=== PATIENT | female | born 1950 | race Caucasian/White ===

== ENCOUNTER 2018-05-12 11:49 | Outpatient (CLI) | payer OTHER ==
[2018-05-12] MEDS ORDERED: DEXAMETHASONE 10 MG/ML VIAL IV ONE (11:50)
[2018-05-12] MEDS ORDERED: LIDOCAINE 2% 2 ML INJ IF ONE (11:50)
[2018-05-12] MEDS ORDERED: ONDANSETRON 4 MG/2 ML VIAL IVP ONE (11:50)
[2018-05-12] MEDS ORDERED: SUCCINYLCHOLINE CHLORIDE 200 MG/10 ML VIAL ONE (12:08)
[2018-05-12] MEDS ORDERED: ROCURONIUM 100 MG/10 ML VIAL ONE (12:09)
[2018-05-12] MEDS ORDERED: GADOBUTROL 10 ML VIAL IVP ONE (12:50)
[2018-05-12] MEDS ORDERED: PROPOFOL 200 MG/20 ML VIAL ONE (13:04)
[2018-05-12] MEDS ORDERED: PROPOFOL/EMULSION 500 MG/50 ML BOTTLE IV ONE (13:04)
--- NOTE | 2018-05-12 13:35 | PDANEPAE ---
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 htn, PE 11 years ago, - Neurologic History Hx Cerebrovascular Accident: Yes Hx Seizures: No Neurologic History Comment: 2 strokes, one on each side at the same time- 11 years ago. 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, not active, pituitary adenoma, - Chronic Pain History Chronic Pain: Yes - Surgical History Prior Surgeries: rhinoplasty, left oopherect, partial amputation of left digit- hand, remove tumor from left zygomatic arch, ANE Review of Systems Review of systems is: negative Review of Systems: - Exercise capacity METS (RN): 3 METS ANE Patient History - Allergies Allergies/Adverse Reactions: meperidine [From Demerol] Allergy (Severe, Verified 05/10/18 09:24) Anaphylaxis morphine Allergy (Severe, Verified 05/10/18 09:23) Anaphylaxis - Home Medications Home Medications: Atrovent Neb (*) 1 inh PO TID 05/10/18 [Last Taken Unknown] CeleBREX 200 mg PO BID 05/10/18 [Last Taken Unknown] Lasix 40 MG (*) 40 mg DAILY 05/10/18 [Last Taken 05/12/18 05:00] Medrol 8 mg PO DAILY 05/10/18 [Last Taken 05/12/18 05:00] Nexium 40 mg PO DAILY 05/10/18 [Last Taken Unknown] Vit D3-Vit K/Berberine/Hops 4,000 iunits PO DAILY 05/10/18 [Last Taken 05/12/18 05:00] Wp Thyroid 65 mg PO DAILY 05/10/18 [Last Taken 05/12/18 05:00] - Smoking Hx Smoking Status: Never smoked - Family Anes Hx Family Hx Anesthesia Complications: no ANE Labs/Vital Signs - Labs Result Diagrams: 05/12/18 12:40 - Vital Signs Blood Pressure: 134/79 Heart Rate: 68 Respiratory Rate: 16 O2 Sat (%): 94 ANE Physical Exam - Airway Neck exam: FROM Mallampati Score: Class 1 Mouth exam: normal dental/mouth exam - Pulmonary Pulmonary: no respiratory distress - Cardiovascular Cardiovascular: regular rate and rhythym - ASA Status ASA Status: III ANE Anesthesia Plan Anesthesia Plan: GA w LMA
[2018-05-12] MEDS ORDERED: fentaNYL 100 MCG/2 ML INJ ONE (13:47)
[2018-05-12] MEDS ORDERED: ONDANSETRON 4 MG/2 ML VIAL IVP PRN (15:10)
[2018-05-12] MEDS ORDERED: PROMETHAZINE HCL 25 MG/ML INJ IVP PRN (15:10)
--- NOTE | 2018-05-12 15:11 | POSTANESTH ---
Post Anesthetic Evaluation Cardiovascular Status: Normal, Stable Respiratory Status: Normal, Stable Level of Consciousness/Mental Status: Can Participate in Eval Pain Control: Adequate, Prn Tx Ordered Nausea/Vomiting Control: Adequate, Prn Tx Ordered Complications Possibly Related to Anesthesia: None Noted
[2018-05-12 16:13] VITALS: BP 123/82
== END 2018-05-12 16:22 | disposition home or self-care (01) ==
LOC: FIMAGING 11:49
PROVIDERS: ATTEND Psychiatry & Neurology Neurology
DX: I65.23 Occlusion and stenosis of bilateral carotid arteries (principal); R51 Headache
CPT/HCPCS: 70544; 70548; 70553; A9585; J1100; J2405; J2704; J0330; J3010